=== PATIENT | female | born 1985 | race Caucasian/White ===

== ENCOUNTER 2016-02-21 15:47 | Emergency (ER) | payer MEDICAID ==
[2016-02-21] MEDS ORDERED: LIDOCAINE 2% VISC 15 ML UDC ONE (17:18)
[2016-02-21] MEDS ORDERED: KETOROLAC 60 MG/2 ML VIAL IM ONE (17:48)
== END 2016-02-21 18:22 | disposition home or self-care (01) ==
LOC: ER 15:47
CPT/HCPCS: 72100; 80307; 81001; 81025; 96372

== ENCOUNTER 2016-03-07 22:11 | Emergency (ER) | payer MEDICAID | END 2016-03-08 00:14 | disposition home or self-care (01) | LOC: ER 22:11 | DX: Z03.89 Encounter for observation for other suspected diseases and conditions ruled out (principal) | CPT/HCPCS: 80307; 81001 ==

== ENCOUNTER 2016-03-10 21:41 | Emergency (ER) | payer MEDICAID | END 2016-03-10 23:32 | disposition home or self-care (01) | LOC: ER 21:41 | DX: Z02.83 Encounter for blood-alcohol and blood-drug test (principal) | CPT/HCPCS: 80307; 81001 ==